=== PATIENT | male | born 1985 | race Caucasian/White ===

== ENCOUNTER 2022-08-09 08:25 | Emergency (ER) | payer MEDICAID ==
[~2022-08-09] VITALS: Ht 165.1 cm; Wt 72.6 kg
[2022-08-09 08:32] VITALS: BP_SYST 153
[2022-08-09] MEDS ORDERED: HYDROcodone/ACETAMIN 10-325 MG TAB PO ONE (08:45)
[2022-08-09] MEDS ORDERED: KETOROLAC TROMETHAMINE 60 MG/2 ML VIAL IM ONE (08:45)
[2022-08-09] MEDS ORDERED: SOM350 PO (09:48)
[2022-08-09] MEDS ORDERED: IBUP-1971 PO (09:48)
[2022-08-09 10:07] VITALS: BP_SYST 153
== END 2022-08-09 09:57 | disposition home or self-care (01) ==
LOC: SED 08:25
DX: S33.5XXA Sprain of ligaments of lumbar spine, initial encounter (principal); M79.662 Pain in left lower leg; Z79.899 Other long term (current) drug therapy; X58.XXXA Exposure to other specified factors, initial encounter; Y93.89 Activity, other specified; Y92.89 Other specified places as the place of occurrence of the external cause; Y99.8 Other external cause status
CPT/HCPCS: 99283; 72100; 96372; J1885